=== PATIENT | female | born 1980 | race Caucasian/White ===

== ENCOUNTER 2017-06-02 17:06 | Emergency (ER) | payer OTHER ==
[~2017-06-02] VITALS: Ht 162.6 cm; Wt 108.9 kg
[~2017-06-02 17:06] MED LIST: ALLEGRA60 MG PO; CIPROFLOXACIN500 M1 PO; DULERA 100 MCG/13 GM IH; FENTANYL PA25 MCG/HR TRANSDERM; FLEXERIL PO; GRALISE600 MG PO; NEURONTIN300 MG PO; NEXIUM 40 MG CA40 M1 PO; NORCO 5-325 TA1 EACH PO; PERCOCET PO; SEASONALE; SERTRALINE HCL50 MG PO; SINGULAIR 10 MG10 M1 PO; SINGULAIR 10 MG10 MG PO; ULTRAM 50MG TAB50 MG PO; WELLBUTRIN XL300 MG PO; XOPENEX1.25 MG/3 IH; ZOLOFT100 MG PO
[2017-06-02 17:31] LABS: URINE BILIRUBIN NEGATIVE (Negative); URINE BLOOD 3+ (Negative); URINE COLOR RED; URINE GLUCOSE-RANDOM* NEGATIVE (Negative); URINE KETONES NEGATIVE (Negative); URINE LEUKOCYTES-REFLEX NEGATIVE (Negative); URINE PROTEIN (DIPSTICK) NEGATIVE (Negative); URINE SPECIFIC GRAVITY 1.015 (1.005-1.035); URINE UROBILINOGEN 0.2 E.U./dl (0.2-1.0)
[2017-06-02 17:40] LABS: SQUAMOUS 0-3 Few /LPF (0-3); URINE RBC >20 Many /HPF (0-2); URINE WBC-REFLEX None Seen /HPF (0-5)
[2017-06-02 17:40] LABS: BASOPHILS 1.1 % (0.0-2.0); EOSINOPHILS 5.4 % (0.0-3.0); HEMATOCRIT 38.4 % (37.0-47.0); HEMOGLOBIN 12.9 gm/dL (12.0-15.0); LYMPHOCYTES 25.1 % (24.0-44.0); MCH 27.7 pg (26.0-34.0); MCHC 33.7 g/dL (28.0-37.0); MCV 82.1 fL (80.0-100.0); MONOCYTES 6.6 % (1.0-8.0); PLATELET COUNT 207 thou/uL (150-400); POLYS 61.8 % (36.0-66.0); RBC 4.68 mil/uL (4.20-5.00); RDW 14.3 % (10.5-14.5); WBC 9.7 thou/uL (4.0-11.0)
[2017-06-02 17:41] LABS: CASTS None Seen /LPF (None Seen); CRYSTALS None Seen /LPF (None Seen)
[2017-06-02 17:42] LABS: MANUAL DIFF NO
[2017-06-02 17:52] LABS: CALCIUM 8.7 mg/dL (8.5-10.1); CREATININE 0.7 mg/dL (0.6-1.0); POTASSIUM 4.2 mmol/L (3.5-5.1)
[2017-06-02 17:58] LABS: ALBUMIN 3.4 g/dL (3.4-5.0); TOTAL BILIRUBIN 0.2 mg/dL (<0.1-1.0); TOTAL PROTEIN 7.1 g/dL (6.4-8.2)
[2017-06-02] MEDS ORDERED: KEFLEX500 M1 PO (18:17)
[2017-06-02] MEDS ORDERED: MOBIC15 MG PO (18:17)
== END 2017-06-02 19:01 | disposition home or self-care (01) ==
LOC: ER 17:06
PROVIDERS: Physician Assistant
DX: N20.0 Calculus of kidney (principal); R31.9 Hematuria, unspecified; N39.0 Urinary tract infection, site not specified; F10.99 Alcohol use, unspecified with unspecified alcohol-induced disorder; Z87.442 Personal history of urinary calculi; Z98.890 Other specified postprocedural states